=== PATIENT | male | born 1970 | race Caucasian/White ===

== ENCOUNTER → 2019-12-31 | Outpatient (CLI) | payer OTHER ==
--- NOTE | 2019-12-31 12:07 | ECHOS ---
STRESS ECHOCARDIOGRAM INDICATIONS: Palpitations MEDICATIONS: Pantoprazole sodium BASELINE HEART RATE: 56 BASELINE BLOOD PRESSURE: 148/87 MAXIMUM HEART RATE: 148 MAXIMUM BLOOD PRESSURE: 200/76 85% MPHR: 145 100% MPHR: 171 METS: 8.9 MAXIMUM STAGE REACHED: 3 TOTAL EXERCISE TIME: 7:30 CLINICAL INFORMATION: Baseline rhythm is sinus mechanism,. rate of 56. normal axis and intervals, normal echocardiogram. Baseline blood pressure 148/87 mmHg. Patient exercised on Mahesh protocol for 7 minute 30 seconds, reaching a peak rate of 148 beats per minute which is equal to 87% maximum predicted heart rate. Peak blood pressure 200/76 mmHg. Test was terminated due to fatigue. There was no chest pain. Electrocardiograph monitoring revealed no evidence of diagnostic ischemic ST deviation. FINDINGS: Baseline echocardiogram revealed normal wall motion. At peak exercise, there was normal wall motion augmentation with no hypokinesis or dyskinesis. CONCLUSION: 1. Decreased exercise tolerance with normal echocardiograph response to exercise. 2. Normal stress echocardiogram with no evidence of stress-induced ischemia. MMODL / IJN: [id number] /
== END | disposition home or self-care (01) ==
LOC: RADNMMAIN 08:44
PROVIDERS: ATTEND Family Medicine
DX: R00.2 Palpitations (principal)
CPT/HCPCS: 93351

== ENCOUNTER → 2020-06-06 | Outpatient (CLI) | payer OTHER ==
--- NOTE | 2020-06-06 15:37 | CT ---
EXAMINATION TYPE: CT abdomen pelvis wo con DATE OF EXAM: 06/06/2020 HISTORY: Left lower quadrant abdominal pain x2 weeks. CT DLP: 1069 mGycm. Automated Exposure Control for Dose Reduction was Utilized. TECHNIQUE: CT scan of the abdomen and pelvis is performed without oral or IV contrast. COMPARISON: CT November 22, 2009 FINDINGS: Within the limitations of a non-contrast study, the following observations are made. LUNG BASES: No significant abnormality is appreciated. LIVER/GB: Liver remains diffusely low dense consistent with diffuse fatty infiltration. Contracted ga llbladder on current study. PANCREAS: No significant abnormality is seen. SPLEEN: No significant abnormality is seen. ADRENALS: No significant abnormality is seen. KIDNEYS: No renal stones or hydronephrosis is seen bilaterally. BOWEL: Suboptimal evaluation bowel without enteric contrast. No suspicious small or large bowel dilat ation. There is mild/moderate ill-defined fluid and fat stranding with moderate to severe wall thicke brian involving the proximal to mid sigmoid colon in the left midpelvis slightly anteriorly on image 7 4 with a left lateral diverticulum. There is phrenic fluid extending into the left pelvis. No free ai r. No well-formed fluid collection or abscess. GENITAL ORGANS: No gross abnormality seen. LYMPH NODES: No greater than 1cm abdominal or pelvic lymph nodes are appreciated. OSSEOUS STRUCTURES: Mild facet arthropathy lower lumbar spine. OTHER: Mild/moderate calcified plaque of the aorta extends into branch vessels. IMPRESSION: CT findings consistent with a fairly moderate acute diverticulitis proximal to mid sigmoi d colon in the left mid pelvis as detailed above.
== END | disposition home or self-care (01) ==
LOC: RADCTMAIN 15:05
PROVIDERS: ATTEND Nurse Practitioner Adult Health
DX: R10.32 Left lower quadrant pain (principal)
CPT/HCPCS: 74176

== ENCOUNTER → 2022-01-28 | Outpatient (CLI) | payer OTHER ==
--- NOTE | 2022-01-28 07:32 | CT ---
EXAMINATION TYPE: CT chest wo con CT DLP: 196.8 mGycm, Automated exposure control for dose reduction was used. DATE OF EXAM: 01/28/2022 7:08 AM COMPARISON: CT chest 11/24/2009, CT abdomen pelvis 06/06/2020. CLINICAL INDICATION:Male, 51 years old with history of R00.2; Chest pain TECHNIQUE: Multiple axial images were obtained through the chest without IV contrast. Lack of IV or o ral contrast limits evaluation of solid and hollow organ viscera. Coronal and sagittal reformats revi ewed. FINDINGS: LUNGS/ PLEURA: No pleural effusion, pneumothorax, or focal consolidation. 3 mm ground glass nodule a long the right minor fissure favored to represent an intrafissural lymph node. No suspicious pulmonar y nodules or masses. AIRWAY: Patent and unremarkable. HEART: Size within normal limits. No pericardial effusion. MEDIASTINUM/HILUM: No gross evidence of adenopathy. VASCULATURE: No aortic aneurysm. MUSCULOSKELETAL: No acute osseous abnormalities SOFT TISSUES/LYMPH NODES: Unremarkable. LOWER NECK: No significant findings. UPPER ABDOMEN: Small hiatal hernia. Liver is diffusely hypoattenuating. IMPRESSION: 1. No acute thoracic process. 2. Hepatic steatosis. 3. Small hiatal hernia.
== END | disposition home or self-care (01) ==
LOC: RADCTMAIN 06:50
PROVIDERS: ATTEND Family Medicine
DX: J98.59 Other diseases of mediastinum, not elsewhere classified (principal); R00.2 Palpitations; K76.0 Fatty (change of) liver, not elsewhere classified; K44.9 Diaphragmatic hernia without obstruction or gangrene
CPT/HCPCS: 71250

== ENCOUNTER 2022-06-28 07:08 | Day surgery (SDC) | payer MEDICAID, OTHER ==
[~2022-06-28 07:08] MED LIST: LACTATED RINGERS 1,000 ML IV SCH; LIDOCAINE 1% (10MG/ML) FOR IV START INTRADERMA PRN
[2022-06-28 07:37] VITALS: RESP 16; TEMP 97.9
[2022-06-28] MEDS ORDERED: MIDAZOLAM 2 MG/2 ML VIAL ONE (09:03)
[2022-06-28] MEDS ORDERED: PROPOFOL 10 MG/ML 20 ML VIAL IV ONE (09:03)
[2022-06-28] MEDS ORDERED: fentaNYL (PF) 50 MCG/ML 2 ML AMP ONE (09:03)
[2022-06-28] MEDS ORDERED: LIDOCAINE 2% INJ 20 MG/ML (2 ML VIAL) ONE (09:03)
--- NOTE | 2022-06-28 09:26 | P.PCN ---
Date of Procedure: 06/28/22 Procedure(s) Performed: Brief history: Patient is a pleasant 51-year-old white male scheduled for an elective upper endoscopy as well as colonoscopy as a part of evaluation of reflux and history of GERD and Arroyo's esophagus. He scheduled for a colonoscopy a part of screening for colorectal neoplasia. Procedure performed: Esophagogastroduodenoscopy with biopsy Colonoscopy with snare polypectomy Preoperative diagnosis: Long-standing history of GERD/Arroyo's esophagus Screening for colon cancer Anesthesia: MAC Procedure: After informed consent was obtained from the patient was brought into the endoscopy unit and IV sedation was administered by anesthesia under continuous monitoring. Initially upper endoscopy was done. The Olympus GF 160 video endoscope was inserted inserted into the mouth and esophagus intubated without any difficulty and was gradually advanced into the stomach and duodenum and carefully examined. The bulb and second part of the duodenum appeared normal. The scope was then withdrawn into the stomach adequately insufflated with air and upon careful examination the antrum and body, cardia and fundus appeared normal. The scope was then withdrawn into the esophagus. Moderate size hiatal hernia noted.. The GE junction was located at 36 cm to the incisors. There was long segment of Arroyo's esophagus and from 20-36 cm from the incisors and multiple biopsies were done from the Arroyo's esophagus. The mucosa appeared smooth with no nodularity or ulcerations identified. Rest of the esophagus appeared normal. Patient tolerated the procedure well. At this time the patient continued to remain sedation. Initial digital rectal examination was normal. Olympus CF 160 video colonoscope was then inserted into the rectum and gradually advanced to the cecum without any difficulty. Careful examination was performed as the scope was gradually being withdrawn. The prep was excellent. The cecum, appeared normal. Ascending colon there was a 5 mm sessile polyp removed by snare polypectomy. In the descending colon there was a 5 mm sessile polyp removed by snare polypectomy. In the sigmoid colon there was a 4 mm polyp removed by snare polypectomy. Mucosa of the rectum appeared normal. Retroflexion was performed in the rectum and no lesions were noted. Patient tolerated the procedure well. Impression: 1. Upper endoscopy revealed long segment Arroyo's esophagus extending from 28- 36 cm from the incisors status post multiple biopsies and moderate size hiatal hernia 2. Colonoscopy revealed 5 mm ascending colon polyp, 4 mm descending colon polyp and another 5 mm rectal polyp status post polypectomy Recommendations: Findings of this examination were discussed with the patient as well as his family. He'll continue with Protonix 40 mg daily and follow antireflux measures. Follow with the biopsy results. If the biopsies do not show any evidence of dysplasia he can have a repeat upper endoscopy in 3 years and a epeat colonoscopy in 3-5 years.
[2022-06-28 09:55] VITALS: BP 117/81; PULSE 75
== END 2022-06-28 10:22 | disposition home or self-care (01) ==
LOC: ORWHC2ENDO 07:08
PROVIDERS: ATTEND Internal Medicine Gastroenterology
DX: Z12.11 Encounter for screening for malignant neoplasm of colon (principal); D12.2 Benign neoplasm of ascending colon; D12.4 Benign neoplasm of descending colon; D12.8 Benign neoplasm of rectum; K29.50 Unspecified chronic gastritis without bleeding; K22.70 Barrett's esophagus without dysplasia; K44.9 Diaphragmatic hernia without obstruction or gangrene; I10 Essential (primary) hypertension; Z87.891 Personal history of nicotine dependence; Z79.899 Other long term (current) drug therapy
CPT/HCPCS: 88305; 45385; 43239; J2250; J3010; J2704; J2001